=== PATIENT | female | born 2000 | race Caucasian/White ===

== ENCOUNTER → 2020-09-28 | Outpatient (CLI) | payer MEDICAID ==
[2020-09-28 09:22] LABS: EOS # 0.2 (0.04-0.40); EOS % 2.8 % (0.1-4.0); HEMATOCRIT 42.5 % (35.0-45.0); LYMPH# 1.6 (1.20-3.40); MEAN CELL VOLUME 88 fl (78-95); MEAN CORPUSCULAR HEMOGLOBIN 29 pg (26-32); MEAN CORPUSCULAR HGB CONC 33 g/dL (33-37); MEAN PLATELET VOLUME 9.6 fl (7.4-10.4); MONO # 0.6 (0.10-0.60); PLATELET COUNT 383 K/mm3 (130-400); RED BLOOD COUNT 4.85 M/mm3 (4.10-5.30); RED CELL DISTRIBUTION WIDTH 13.3 % (11.5-14.5); WHITE BLOOD COUNT 6.4 K/mm3 (4.8-10.8)
[2020-09-28 09:38] LABS: POTASSIUM 4.1 mmol/L (3.5-5.1)
[2020-09-28 09:39] LABS: CALCIUM 8.8 mg/dL (8.3-10.5)
[2020-09-28 09:42] LABS: TOTAL BILIRUBIN 0.6 mg/dL (0.2-1.2)
== END ==
LOC: LAB 08:57
PROVIDERS: Family Medicine
DX: Z00.00 Encounter for general adult medical examination without abnormal findings (principal)